=== PATIENT | female | born 1950 | race Caucasian/White ===

== ENCOUNTER → 2018-12-01 | Outpatient (CLI) | payer OTHER, MEDICARE ==
[~2018-12-01] MED LIST: APIX5TAB PO; DILT60TA3 PO; FLEC100T3 PO; FLEC50TA3 PO; IOHEXOL 350 MG/ML 100ML INFUS..BTL IV ONE; LOSA50TA64 PO; METF-805 PO; METO25TA6 PO; METO50TA18 PO; VERA80TA5 PO
== END | disposition home or self-care (01) ==
LOC: RAH 09:26
PROVIDERS: ATTEND Internal Medicine Cardiovascular Disease
DX: I25.10 Atherosclerotic heart disease of native coronary artery without angina pectoris (principal); I70.0 Atherosclerosis of aorta; I48.0 Paroxysmal atrial fibrillation
CPT/HCPCS: 71275; Q9967

== ENCOUNTER 2018-12-12 05:52 | Day surgery (SDC) | payer OTHER, MEDICARE ==
[2018-12-09 12:49] LABS: BASOPHILS % (AUTO) 1.2 % (0.0-5.0); EOSINOPHILS % (AUTO) 2.2 % (0.0-8.0); HEMATOCRIT 40.4 % (36-48); LYMPHOCYTES % (AUTO) 36.4 % (21.0-51.0); MEAN CORPUSCULAR HEMOGLOBIN 32.5 pg (27.0-33.0); MEAN CORPUSCULAR HGB CONC 34.3 g/dL (32.0-36.0); MEAN CORPUSCULAR VOLUME 94.7 fL (79-99); MONOCYTES % (AUTO) 9.7 % (3.0-13.0); NEUTROPHILS % (AUTO) 50.5 % (40.0-77.0); NUCLEATED RED BLOOD CELLS 0.1 % (0.0-0.19); PLATELET COUNT (AUTO) 256 K/uL (130-400); RED BLOOD CELL COUNT(AUTO) 4.27 MIL/uL (4.00-5.50); RED CELL DISTRIBUTION WIDTH 13.3 % (11.0-15.5); WHITE BLOOD COUNT (AUTO) 8.2 K/uL (4.8-10.8)
[2018-12-09 12:59] LABS: CREATININE 0.8 mg/dL (0.5-1.5); POTASSIUM 4.7 mmol/L (3.5-5.1)
[2018-12-09 13:53] VITALS: BP 123/61
[2018-12-09 13:57] LABS: INR 0.95 (0.85-1.15); PARTIAL THROMBOPLASTIN TIME 27.8 SEC (26.3-35.5)
--- NOTE | 2018-12-11 16:32 | NUR ---
H&P PER ANN BENJAMIN STATES PLAN FOR ABLATION.
[~2018-12-12] VITALS: Ht 158.8 cm; Wt 94.2 kg
[~2018-12-12 05:52] MED LIST changes: -FLEC100T3 PO; -IOHEXOL 350 MG/ML 100ML INFUS..BTL IV ONE; -METO25TA6 PO; -VERA80TA5 PO
--- NOTE | 2018-12-12 06:15 | NUR ---
PATIENT ARRIVED PATIENT ARRIVED TO OR HOLDING ACCOMPANIED BY DAUGHTER, ERIC. PATIENT [id number], RESPIRATIONS UNLABORED, VITAL SIGNS STABLE. PATIENT DENIES ANY PAIN AT THIS TIME. PROCEDURE CONFIRMED/VERIFIED WITH PATIENT. HOSPITAL ROUTINE EXPLAINED TO PATIENT, VERBALIZED UNDERSTANDING.
[2018-12-12] MEDS ORDERED: SUCCINYLCHOLINE 200MG/10ML SYR ONE (06:35)
[2018-12-12] MEDS ORDERED: DEXAMETHASONE SOD PHOSPHATE 10MG/ML 1ML VIAL ONE (06:35)
[2018-12-12] MEDS ORDERED: LIDOCAINE PF 2% 5ML ABBOJECT ONE (06:35)
[2018-12-12] MEDS ORDERED: NEOSTIGMINE 5MG/5ML SYR IV ONE (06:36)
[2018-12-12] MEDS ORDERED: PROPOFOL 10 MG/ML 20ML VIAL IV ONE ×2 (06:36→06:37)
[2018-12-12] MEDS ORDERED: MIDAZOLAM HCL 1 MG/ML 2ML VIAL ONE (06:36)
[2018-12-12] MEDS ORDERED: GLYCOPYRROLATE 1 MG/5 ML SYRINGE ONE (06:36)
[2018-12-12] MEDS ORDERED: ROCURONIUM 10MG/1ML SYR 10 MG/ML ML ONE ×2 (06:36→06:40)
[2018-12-12] MEDS ORDERED: ONDANSETRON HCL 4 MG/2 ML VIAL ONE (06:36)
[2018-12-12] MEDS ORDERED: FENTANYL CITRATE PF 50 MCG/1 ML 2ML VIAL ONE ×2 (06:37)
[2018-12-12] MEDS ORDERED: ESMOLOL HCL 10 MG/ML 10 ML VIAL ONE (06:38)
[2018-12-12 06:45] VITALS: BP 157/73
--- NOTE | 2018-12-12 06:45 | NUR ---
CALLED ANN AND INFORMED HER THAT PATIENT HAS NOT TAKEN HER ELIQUIS SINCE Saturday12/09/18 AT 0730. PER ANN, SHE WILL CALL DR CLEVELAND AND INFORM HIM AND CALL ME BACK.
--- NOTE | 2018-12-12 07:20 | NUR ---
INFORMED JOSE BEE THAT PATIENT HAS NOT TAKEN HER ELIQUIS SINCE 12/09/18 AT 0730. JOSE BEE CALLED DR CLEVELAND AND INFORMED HIM THAT PATIENT HAS NOT TAKE ELIQUIS SINCE 12/09/18. JOSE BEE RECEIVED ORDERS FROM DR CLEVELAND TO CANCEL PROCEDURE. JOSE BEE INFORMED PATIENT THAT PROCEDURE WILL BE CANCELED TODAY. PATENT VERBALIZED UNDERSTANDING.
--- NOTE | 2018-12-12 07:32 | NUR ---
ARTERIAL LINE DISCONTINUED A-LINE REMOVED BY JOSE DESHPANDE. CATHETER INTACT. PRESSURE APPLIED BY ZENA THOMAS RN. APPLIED PRESSURE FOR 10 MINUTES. 0737 NO BLEEDING NOTED FROM THE SITE, NO HEMATOMA/DRAINAGE NOTED. COVERED WITH GAUZE AND PRESSURE WRAP. INSTRUCTED PATIENT TO REMOVED WHEN SHE GETS HOME.
--- NOTE | 2018-12-12 07:55 | NUR ---
SPOKE WITH DR CLEVELAND, OFFICE WILL BE CALLING THE PATIENT TO RESCHEDULE THE PROCEDURE.
--- NOTE | 2018-12-12 07:58 | NUR ---
PATIENT DISCHARGED FROM HOSPITAL, PATIENT AND DAUGHTER WALKED OUT UNASSISTED.
[2018-12-12] MEDS ORDERED: SODIUM CHLORIDE 0.9% 1000ML 1,000 ML IV SCH (08:00)
== END 2018-12-12 08:00 | disposition home or self-care (01) ==
LOC: DAH 05:52
PROVIDERS: ATTEND Internal Medicine Cardiovascular Disease
DX: I48.0 Paroxysmal atrial fibrillation (principal); Z53.8 Procedure and treatment not carried out for other reasons; Z79.01 Long term (current) use of anticoagulants; Z79.84 Long term (current) use of oral hypoglycemic drugs; Z79.899 Other long term (current) drug therapy; Z82.49 Family history of ischemic heart disease and other diseases of the circulatory system; Z82.5 Family history of asthma and other chronic lower respiratory diseases
CPT/HCPCS: 36415; 80048; 82948; 85025; 85610; 85730; A4215; A4221; A4222; A4223; A4510; A4600; A4663; J0330; J1100; J2001; J2405; J2704; J2710; J3010 ×2; J3490; J7030; J2250

== ENCOUNTER 2019-01-16 05:36 | Observation (INO) | payer OTHER, MEDICARE ==
[2019-01-14 09:40] LABS: BASOPHILS % (AUTO) 0.2 % (0.0-5.0); EOSINOPHILS % (AUTO) 2.1 % (0.0-8.0); HEMATOCRIT 39.7 % (36-48); LYMPHOCYTES % (AUTO) 36.4 % (21.0-51.0); MEAN CORPUSCULAR HEMOGLOBIN 32.1 pg (27.0-33.0); MEAN CORPUSCULAR HGB CONC 34.1 g/dL (32.0-36.0); MONOCYTES % (AUTO) 9.5 % (3.0-13.0); NEUTROPHILS % (AUTO) 51.8 % (40.0-77.0); PLATELET COUNT (AUTO) 250 K/uL (130-400); RED BLOOD CELL COUNT(AUTO) 4.22 MIL/uL (4.00-5.50); RED CELL DISTRIBUTION WIDTH 13.6 % (11.0-15.5); WHITE BLOOD COUNT (AUTO) 7.8 K/uL (4.8-10.8)
[2019-01-14 09:47] LABS: CREATININE 0.8 mg/dL (0.5-1.5); POTASSIUM 4.3 mmol/L (3.5-5.1)
[2019-01-14 09:55] LABS: INR 0.99 (0.85-1.15); PARTIAL THROMBOPLASTIN TIME 28.2 SEC (26.3-35.5); PROTHROMBIN TIME 10.4 SEC (9.6-11.6)
[2019-01-14 10:20] VITALS: BP 141/63
--- NOTE | 2019-01-15 13:31 | NUR ---
Spoke to Doctor Poole about pt regimen , pt taking metoprolol 25mg bid and verapamil 40mg [id number], okay to proceed, no new orders.
[~2019-01-16] VITALS: Ht 153.7 cm; Wt 95.3 kg
[2019-01-16] VITALS (22 sets, daily range): BP systolic 126–147; BP diastolic 43–77
[~2019-01-16 05:36] MED LIST changes: +FLEC100T3 PO; -FLEC50TA3 PO; +METO25TA6 PO; -METO50TA18 PO; +VERA80TA5 PO
[2019-01-16] MEDS: SODIUM CHLORIDE 0.9% 1000ML 1,000 ML IV SCH (07:09)
--- NOTE | 2019-01-16 07:20 | NUR ---
potential for infection: shaved from abdomen to upper bilateral knee and groin area, followed by wiping with tg 2% : chlorhexidine gluconate cloth patients pre-op skin prep.
[2019-01-16] MEDS ORDERED: LIDOCAINE PF 2% 5ML ABBOJECT ONE (07:58)
[2019-01-16] MEDS ORDERED: PROPOFOL 10 MG/ML 20ML VIAL IV ONE ×2 (07:58→08:01)
[2019-01-16] MEDS ORDERED: SUCCINYLCHOLINE 200MG/10ML SYR ONE (07:58)
[2019-01-16] MEDS ORDERED: GLYCOPYRROLATE 1 MG/5 ML SYRINGE ONE (07:59)
[2019-01-16] MEDS ORDERED: ONDANSETRON HCL 4 MG/2 ML VIAL ONE (07:59)
[2019-01-16] MEDS ORDERED: DEXAMETHASONE SOD PHOSPHATE 10MG/ML 1ML VIAL ONE (07:59)
[2019-01-16] MEDS ORDERED: NEOSTIGMINE 5MG/5ML SYR IV ONE (07:59)
[2019-01-16] MEDS ORDERED: MIDAZOLAM HCL 1 MG/ML 2ML VIAL ONE (07:59)
[2019-01-16] MEDS ORDERED: FENTANYL CITRATE PF 50 MCG/1 ML 2ML VIAL ONE ×2 (08:00)
[2019-01-16] MEDS ORDERED: ROCURONIUM 10MG/1ML SYR 10 MG/ML ML ONE ×2 (08:00→08:01)
[2019-01-16] MEDS ORDERED: ESMOLOL HCL 10 MG/ML 10 ML VIAL ONE (08:02)
[2019-01-16] MEDS ORDERED: PHENYLEPHRINE HCL 10 MG/ML 1ML VIAL IV ONE (08:13)
[2019-01-16] MEDS ORDERED: LIDOCAINE HCL 2% 20ML ONE (09:34)
[2019-01-16] MEDS ORDERED: HEPARIN SODIUM 1000UNIT/ML 10ML VIAL ONE (09:34)
[2019-01-16] MEDS ORDERED: EPHEDRINE SULFATE 50 MG/ML AMPULE ONE (09:42)
[2019-01-16] MEDS ORDERED: ISOPROTERENOL HCL 0.2 MG/ML AMP/VIAL/BAG ONE (13:03)
[2019-01-16] MEDS ORDERED: PROTAMINE SULFATE 10 MG/ML 25ML VIAL IV ONE (13:27)
[2019-01-16] MEDS ORDERED: FLEC50TA3 PO (16:26)
[2019-01-16] MEDS: VERAPAMIL HCL 80 MG TABLET PO SCH ×2 (16:28→23:45)
[2019-01-16] MEDS: LOSARTAN 50 MG TABLET PO SCH (20:36)
[2019-01-16] MEDS: APIXABAN 5 MG TABLET PO SCH (20:37)
[2019-01-16] MEDS: FLECAINIDE ACETATE 100 MG TABLET PO SCH (20:37)
[2019-01-16] MEDS: METOPROLOL TARTRATE 25 MG TAB PO SCH (20:38)
[2019-01-17 00:29] VITALS: BP 121/51
[2019-01-17] MEDS ORDERED: FAMOTIDINE 20MG TAB 20 MG TAB PO SCH (02:00)
[2019-01-17] MEDS: SODIUM CHLORIDE 0.9% 1000ML 1,000 ML IV SCH (02:20)
[2019-01-17 03:59] VITALS: BP 151/59
[2019-01-17 05:03] LABS: BASOPHILS % (AUTO) 0.6 % (0.0-5.0); HEMATOCRIT 37.8 % (36-48); LYMPHOCYTES % (AUTO) 10.2 % (21.0-51.0); MEAN CORPUSCULAR HEMOGLOBIN 32.1 pg (27.0-33.0); MEAN CORPUSCULAR VOLUME 94.5 fL (79-99); MONOCYTES % (AUTO) 3.4 % (3.0-13.0); NEUTROPHILS % (AUTO) 85.8 % (40.0-77.0); NUCLEATED RED BLOOD CELLS 0.2 % (0.0-0.19); PLATELET COUNT (AUTO) 218 K/uL (130-400); RED BLOOD CELL COUNT(AUTO) 4.01 MIL/uL (4.00-5.50); RED CELL DISTRIBUTION WIDTH 13.5 % (11.0-15.5); WHITE BLOOD COUNT (AUTO) 14.5 K/uL (4.8-10.8)
[2019-01-17 05:38] LABS: ALBUMIN 3.2 g/dL (3.5-5.0); BILIRUBIN,TOTAL 0.3 mg/dL (0.2-1.0); CREATININE 0.7 mg/dL (0.5-1.5); TOTAL PROTEIN, SERUM 6.9 g/dL (6.0-8.3)
[2019-01-17 07:15] VITALS: BP 141/68
[2019-01-17] MEDS ORDERED: METFORMIN HCL 500 MG TAB.SR.24H PO SCH (09:00)
[2019-01-17] MEDS: APIXABAN 5 MG TABLET PO SCH (09:18)
[2019-01-17] MEDS: LOSARTAN 50 MG TABLET PO SCH (09:18)
[2019-01-17] MEDS: FLECAINIDE ACETATE 100 MG TABLET PO SCH (09:18)
[2019-01-17] MEDS: METOPROLOL TARTRATE 25 MG TAB PO SCH (09:18)
[2019-01-17] MEDS: VERAPAMIL HCL 80 MG TABLET PO SCH ×2 (09:18→15:45)
[2019-01-17 11:30] VITALS: BP 137/57
--- NOTE | 2019-01-17 19:32 | NUR ---
CM NOTE CHART REVIEWED, PT HERE FOR OPP, DC PLAN HOME, NO TRIGGERS TO CM AT THIS TIME Addendum: 01/17/19 at 1933 by BRANDIN SERRANO RN CM Amended: Links added.
== END 2019-01-17 16:48 | disposition home or self-care (01) ==
LOC: DAH 05:36 → DAHIP 05:37 → DAH 05:37 → 2DH 16:06
PROVIDERS: ADMIT Internal Medicine; ATTEND Internal Medicine
DX: I48.0 Paroxysmal atrial fibrillation (principal); I10 Essential (primary) hypertension; E11.65 Type 2 diabetes mellitus with hyperglycemia; E66.01 Morbid (severe) obesity due to excess calories; E78.5 Hyperlipidemia, unspecified; K21.9 Gastro-esophageal reflux disease without esophagitis; Z79.01 Long term (current) use of anticoagulants; Z79.84 Long term (current) use of oral hypoglycemic drugs; Z79.899 Other long term (current) drug therapy; Z68.39 Body mass index [BMI] 39.0-39.9, adult
CPT/HCPCS: 36415 ×2; 80048; 80053; 82948 ×6; 85025 ×2; 85610; 85730; 93005; 93613; 93622; 93623; 93656; 93662; A4215 ×2; A4221; A4222; A4223; A4344; A4649 ×2; A4663; A5120; C1730; C1731; C1732; C1893 ×2; C1894 ×4; G0378 ×26; J0330; J1100; J1644 ×2; J2001; J2250; J2370; J2405; J2704 ×2; J2710; J2720; J3010 ×2; J3490 ×5; J7030 ×2; 93621